=== PATIENT | female | born 1990 | race Caucasian/White ===

== ENCOUNTER → 2023-07-07 15:36 | Outpatient (REF) | payer BC, SELFPAY | LOC: PNTC 15:36 | PROVIDERS: ATTENDING PHYSICIAN Obstetrics & Gynecology | DX: O99.210 Obesity complicating pregnancy, unspecified trimester (principal) | CPT/HCPCS: 59025; 76815 ==

== ENCOUNTER → 2023-07-14 15:34 | Outpatient (REF) | payer BC, SELFPAY | LOC: PNTC 15:34 | PROVIDERS: ATTENDING PHYSICIAN Obstetrics & Gynecology | DX: O99.210 Obesity complicating pregnancy, unspecified trimester (principal) | CPT/HCPCS: 59025; 76815 ==

== ENCOUNTER → 2023-07-21 15:33 | Outpatient (REF) | payer BC, SELFPAY | LOC: PNTC 15:33 | PROVIDERS: ATTENDING PHYSICIAN Obstetrics & Gynecology | DX: O99.210 Obesity complicating pregnancy, unspecified trimester (principal) | CPT/HCPCS: 59025; 76816 ==

== ENCOUNTER → 2023-07-28 15:59 | Outpatient (REF) | payer BC, SELFPAY | LOC: PNTC 15:59 | PROVIDERS: ATTENDING PHYSICIAN Obstetrics & Gynecology | DX: O99.210 Obesity complicating pregnancy, unspecified trimester (principal) | CPT/HCPCS: 59025; 76815 ==

== ENCOUNTER 2023-08-04 16:19 | Inpatient (IN) | payer BC, SELFPAY ==
[2023-08-04 16:45] VITALS: BP 154/11; BMI 59.7
[2023-08-04 16:54] LABS: Urine Albumin Trace (Neg - Trace); Urine Bilirubin Negative (Negative); Urine Character Clear (Clear); Urine Color Yellow; Urine Glucose Negative (Negative); Urine Ketone Trace (Negative); Urine Leukocyte Negative (Negative); Urine Nitrite Negative (Negative); Urine Occult Blood Negative (Negative); Urine Urobilinogen Negative (Neg - 1+)
[2023-08-04 17:00] LABS: Hematocrit 31.9 % (37.0-47.0); Hemoglobin 10.8 g/dL (12.0-16.0); Mean Corp Hgb Conc. 33.9 g/dL (33.0-37.0); Mean Corpuscular Hgb 27.7 pg (27.0-31.0); Mean Corpuscular Volume 81.8 fL (81.0-99.0); Mean Platelet Volume 11.8 fL (7.4-10.4); Platelet Count 227 10^3/uL (130-400); Red Cell Dist. Width 14.6 % (11.5-14.5); White Blood Cell Count 9.9 10^3/uL (4.8-10.8)
[2023-08-04 17:05] LABS: ALT (SGPT) 14 U/L (0-35); AST (SGOT) 16 U/L (14-36); Albumin 3.5 g/dl (3.5-5.0); Alkaline Phosphatase 105 U/L (38-126); Blood Urea Nitrogen 8 mg/dl (7-17); Calcium 9.4 mg/dl (8.4-10.2); Carbon Dioxide 20 mmol/L (22-30); Chloride 106 mmol/L (98-107); Estimated Creatinine Clearance > 125 ml/min; Glucose 120 mg/dl (70-99); Potassium 3.9 mmol/L (3.5-5.1); Sodium 136 mmol/L (135-145); Total Bilirubin 0.3 mg/dl (0.2-1.3); Total Protein 6.6 g/dl (6.3-8.2); eGFR > 60.00
[2023-08-04 17:15] LABS: Protein/creatinine Ratio 0.1; Urine Protein 14 mg/dl
[2023-08-04] MEDS: LR 1000 IV (18:34)
[2023-08-04] MEDS: MAGNESIUM SULFATE 100 IV (18:39)
[2023-08-04] MEDS: MAGNESIUM SULFATE 40 GRAM 1000 IV (18:58)
[2023-08-04] MEDS: TRANDATE 200 MG PO (19:06)
[2023-08-04] MEDS: APRESOLINE 10 MG IV (19:16)
[2023-08-04] MEDS: CELESTONE SOLUSPAN 2 MG IM (19:22)
[2023-08-04] MEDS: CYTOTEC 25 MICROGRAM VAG (20:23)
[2023-08-05] MEDS: CYTOTEC 50 MICROGRAM PO ×5 (00:21→16:25)
[2023-08-05] MEDS: LR 1000 IV ×2 (07:00→19:43)
[2023-08-05] MEDS: TRANDATE 200 MG PO ×2 (07:58→19:59)
[2023-08-05] MEDS: MAGNESIUM SULFATE 40 GRAM 1000 IV (14:41)
[2023-08-05] MEDS: CELESTONE SOLUSPAN 2 MG IM (19:43)
[2023-08-05] MEDS: PITOCIN 30 UNITS/NSS 500 ML IV (21:06)
[2023-08-06] MEDS: TRANDATE 200 MG PO ×2 (08:59→19:58)
[2023-08-06] MEDS: MAGNESIUM SULFATE 40 GRAM 1000 IV ×2 (09:41→12:30)
[2023-08-06] MEDS: LR 1000 IV ×3 (09:41→18:00)
[2023-08-06] MEDS: BICITRA 30 ML PO (10:29)
[2023-08-06] MEDS: TYLENOL 1000 MG PO (10:29)
[2023-08-06] MEDS: ANCEF 15 MG IV (10:31)
[2023-08-06] MEDS: TORADOL 15 MG IV ×2 (18:00→23:56)
[2023-08-07] MEDS: BENADRYL 25 MG PO (00:05)
[2023-08-07] MEDS: TORADOL 15 MG IV ×2 (05:53→11:31)
[2023-08-07] MEDS: MAGNESIUM SULFATE 40 GRAM 1000 IV (06:21)
[2023-08-07 06:41] LABS: Hematocrit 24.9 % (37.0-47.0); Hemoglobin 8.1 g/dL (12.0-16.0); Mean Corp Hgb Conc. 32.5 g/dL (33.0-37.0); Mean Corpuscular Hgb 27.6 pg (27.0-31.0); Mean Platelet Volume 11.6 fL (7.4-10.4); Platelet Count 201 10^3/uL (130-400); Red Blood Cell Count 2.93 10^6/uL (4.20-5.40); Red Cell Dist. Width 15.1 % (11.5-14.5); White Blood Cell Count 13.3 10^3/uL (4.8-10.8)
[2023-08-07] MEDS: TRANDATE 200 MG PO ×2 (08:13→20:10)
[2023-08-07] MEDS: FEOSOL 325 MG PO ×2 (08:13→20:11)
[2023-08-07] MEDS: PRENATAL PLUS 1 TABLET PO (08:13)
[2023-08-07] MEDS: SENOKOT-S 1 TABLET PO (08:13)
[2023-08-07] MEDS: LR IV (08:14)
[2023-08-07] MEDS: LR 1000 IV (08:14)
--- NOTE | 2023-08-07 16:14 | W.PN.ANS.POP ---
Anesthesia Post Operative
- Anesthesia Post Op Note
Vital Signs Stable-See Nursing Note: Yes
Airway Patent: Yes
Adequate Pain Control: Yes
Change in Mental Status: No
Current Postoperative Nausea & Vomiting: No
Anesthesia Complications: No
General Anesthetic Recall: No
Unplanned Admission: No
Post Op Hydration Adequate: Yes
[2023-08-07] MEDS: MOTRIN 600 MG PO ×2 (17:31→23:57)
[2023-08-07] MEDS: TYLENOL 650 MG PO ×2 (17:31→23:56)
[2023-08-08] MEDS: PERCOCET 5/325 1 TABLET PO ×3 (04:49→20:10)
[2023-08-08] MEDS: PRENATAL PLUS 1 TABLET PO (08:22)
[2023-08-08] MEDS: TRANDATE 200 MG PO ×2 (08:22→20:08)
[2023-08-08] MEDS: FEOSOL 325 MG PO ×2 (08:24→20:09)
[2023-08-08] MEDS: SENOKOT-S 1 TABLET PO (08:24)
[2023-08-08] MEDS: MOTRIN 600 MG PO ×2 (08:24→17:08)
[2023-08-08] MEDS: LR IV (19:08)
[2023-08-09] MEDS: PERCOCET 5/325 1 TABLET PO ×3 (01:10→19:54)
[2023-08-09] MEDS: MOTRIN 600 MG PO ×3 (05:20→19:55)
[2023-08-09] MEDS: TRANDATE 400 MG PO ×2 (05:45→17:17)
[2023-08-09] MEDS: FEOSOL 325 MG PO ×2 (08:23→19:55)
[2023-08-09] MEDS: PRENATAL PLUS 1 TABLET PO (08:23)
[2023-08-09] MEDS: TYLENOL 650 MG PO (14:07)
[2023-08-09 14:19] LABS: Syphilis/T. pallidum Ab Reflex Negative (Negative)
--- NOTE | 2023-08-09 15:37 | CM ---
theatre manager met with parents Ada and Titus at bedside
Parents have named their baby Juan Ramon
Mom reporting she plans to breastfeed her son and has a breast pump
Parents report they have all supplies for infant including car seat
Mom plans to take infant to [facility] for peds
theatre manager will be available for additional d/c needs
[2023-08-09] MEDS: MYLICON 80 MG PO (17:26)
--- NOTE | 2023-08-10 00:11 | W.DS.TRANS ---
DC Summary - [employer]
-
Discharge Instructions:
Discharge Diagnosis/Procedures at 36wks, delivered; Pre-eclampsia
with severe features; s/p
Diet As tolerated
Activity No strenuous activity
Instructions:
Stand-Alone Forms: LDRP Delivery
LDRP Hypertensive Disorders
Changes to Home Medications: No
Discharge Medications:
DC Medications w/original date entered in [facility]
Vitamin 1 tab PO DAILY Supplement 08/04/23(OTC)
oxycodone 5 mg capsule 5 mg PO Q6H PRN pain not controlled with motrin and tylenol #7 caps 08/10/23
Labetalol 400mg twice daily
Motrin 600mg as needed every 6hrs for pain
Tylenol 650mg as needed every 6hrs for pain (OTC)
Ferrous sulfate 235mg daily (OTC)
Senakot-- OTC stool softener, daily as needed for constipation
Home Medication Changes
No change-- continue vitamin
Pending Results: No
Total time spent discharging patient (in min): 29
[2023-08-10] MEDS: ATIVAN 0.5 MG PO (01:00)
[2023-08-10] MEDS: TRANDATE 400 MG PO (05:09)
[2023-08-10] MEDS: MOTRIN 600 MG PO (05:10)
[2023-08-10] MEDS: PERCOCET 5/325 1 TABLET PO (05:10)
[2023-08-10] MEDS: FEOSOL 325 MG PO (08:12)
[2023-08-10] MEDS: PRENATAL PLUS 1 TABLET PO (08:12)
== END 2023-08-10 10:31 | disposition home or self-care (01) | DRG 788 ==
LOC: LDRP 16:19
PROVIDERS: Obstetrics & Gynecology; ADMITTING PHYSICIAN Obstetrics & Gynecology; ATTENDING PHYSICIAN Obstetrics & Gynecology
PROC: 3E0P7VZ Introduction of Hormone into Female Reproductive, Via Natural or Artificial Opening (ICD-10-PCS; 2023-08-04)
PROC: 3E033VJ Introduction of Other Hormone into Peripheral Vein, Percutaneous Approach (ICD-10-PCS; 2023-08-04)
PROC: 10D00Z1 Extraction of Products of Conception, Low, Open Approach (ICD-10-PCS; 2023-08-06)
DX: O14.14 Severe pre-eclampsia complicating childbirth (principal); O99.214 Obesity complicating childbirth; O61.0 Failed medical induction of labor; Z3A.36 36 weeks gestation of pregnancy; Z37.0 Single live birth
CPT/HCPCS: 88307; 59025; 76815; 80053; 81003; 82570; 84156; 85027; 86780; 86850; 86900; 86901; 87070; 87491; 87591